=== PATIENT | female | born 1965 | race Two or more races ===

== ENCOUNTER 2022-01-17 12:33 | Inpatient (IN) | payer OTHER ==
[~2022-01-17] VITALS: Ht 167.6 cm; Wt 65.8 kg
[2022-01-17] MEDS ORDERED: IRBESARTAN-HCT1 EACH PO (13:38)
[2022-01-17] MEDS ORDERED: SIMVASTATIN40 MG PO (13:38)
[2022-01-17] MEDS ORDERED: PREDNISONE20 M1 PO (13:38)
[2022-01-17] MEDS ORDERED: CETIRIZINE HCL10 MG PO (13:38)
[2022-01-21] MEDS ORDERED: ZOLPIDEM TARTRA10 MG (16:25)
[2022-01-21] MEDS ORDERED: PENTOXIFYLLINE400 MG (16:25)
[2022-01-21] MEDS ORDERED: PAROXETINE HCL30 MG (16:25)
[2022-01-21] MEDS ORDERED: BUPROPION XL300 MG (16:25)
[2022-02-06] MEDS ORDERED: INTEGRA PLUS C1 EACH PO (09:31)
[2022-02-06] MEDS ORDERED: SIMVASTATIN40 MG PO (09:31)
[2022-02-06] MEDS ORDERED: AVAPRO150 MG PO (09:31)
[2022-02-06] MEDS ORDERED: Neurin-Sl Tablet Sl SL (09:31)
== END 2022-02-06 12:07 | disposition home or self-care (01) | DRG 603 ==
LOC: ER 12:33 → MEDI 19:00 → SEC-K 19:00 → MEDI 19:48
PROVIDERS: ADMIT Internal Medicine; ATTEND Internal Medicine
PROC: B54CZZZ Ultrasonography of Left Lower Extremity Veins (ICD-10-PCS; principal; 2022-01-19)
PROC: B54NZZZ Ultrasonography of Left Upper Extremity Veins (ICD-10-PCS; 2022-01-31)
PROC: BP3 Imaging, Non-Axial Upper Bones, Magnetic Resonance Imaging (MRI) (ICD-10-PCS; 2022-01-31)
DX: L03.113 Cellulitis of right upper limb (principal); L03.116 Cellulitis of left lower limb; M79.89 Other specified soft tissue disorders; M25.572 Pain in left ankle and joints of left foot; E78.49 Other hyperlipidemia; I10 Essential (primary) hypertension; D64.9 Anemia, unspecified; Z20.822 Contact with and (suspected) exposure to COVID-19
CPT/HCPCS: 73218